=== PATIENT | female | born 1945 | race Caucasian/White ===

== ENCOUNTER 2020-06-02 10:55 | Emergency (ER) | payer OTHER ==
[~2020-06-02] VITALS: Ht 147.3 cm; Wt 49.4 kg
[2020-06-02] MEDS ORDERED: ATORVASTATIN CA40 MG (11:19)
[2020-06-02] MEDS ORDERED: SERTRALINE20 MG/1 ML (11:19)
[2020-06-02] MEDS ORDERED: ZESTRIL10 M1 (11:20)
[2020-06-02] MEDS ORDERED: SERTRALINE20 MG/1 ML PO (11:20)
== END 2020-06-02 13:13 | disposition home or self-care (01) ==
LOC: ER 10:55
DX: M54.5 Low back pain (principal)